=== PATIENT | female | born 1990 | race Caucasian/White ===

== ENCOUNTER 2016-09-22 20:30 | Emergency (ER) | payer OTHER ==
[~2016-09-22] VITALS: Ht 162.6 cm; Wt 44.0 kg
[2016-09-22] MEDS ORDERED: KETOROLAC 30 MG/1 ML ONE (20:50)
[2016-09-22] MEDS ORDERED: FAMOTIDINE 20 MG/2 ML IVP ONE (21:00)
[2016-09-22] MEDS ORDERED: KETOROLAC 30 MG/1 ML IVPush ONE (21:00)
[2016-09-22] MEDS ORDERED: ONDANSETRON 2MG/ML, 2ML IVPush ONE (21:00)
[2016-09-22] MEDS ORDERED: SODIUM CHLORIDE FLUSH 10ML SYR IVF ONE (21:00)
[2016-09-22] MEDS ORDERED: SODIUM CHLORIDE 0.9% 1,000ML IVBOLUS ONE (21:00)
[2016-09-22 21:10] LABS: ASPARTATE AMINO TRANSFERASE 8 U/L (15-37); BLOOD UREA NITROGEN 18 mg/dL (7-18)
[2016-09-22] MEDS ORDERED: HALOPERIDOL 5 MG/ML IV STA (21:18)
[2016-09-22] MEDS ORDERED: LORazepam 2 MG/ML, 1ML ONE (21:25)
[2016-09-22] MEDS ORDERED: HALOPERIDOL 5 MG/ML ONE (21:25)
[2016-09-22] MEDS ORDERED: PLEASE ENTER ALLERGIES MC SCH ×2 (21:30)
[2016-09-22] MEDS ORDERED: LORazepam 2 MG/ML, 1ML IVPush ONE (21:30)
[2016-09-22 22:15] VITALS: BP 123/85
== END 2016-09-22 22:53 | disposition home or self-care (01) ==
LOC: ED 22:47
DX: R11.2 Nausea with vomiting, unspecified (principal); E86.0 Dehydration
CPT/HCPCS: 36415; 80053; 81001; 83690; 84703; 85025; 96361; 96374; 96375; 99284; J1630; J1885; J2060; J2405; J7030; S0028

== ENCOUNTER 2016-11-27 17:24 | Emergency (ER) | payer OTHER ==
[~2016-11-27] VITALS: Ht 160 cm; Wt 44.1 kg
[2016-11-27] MEDS ORDERED: FAMOTIDINE 20 MG/2 ML IVP ONE (18:00)
[2016-11-27] MEDS ORDERED: SODIUM CHLORIDE FLUSH 10ML SYR IVF ONE (18:00)
[2016-11-27] MEDS ORDERED: ONDANSETRON 2MG/ML, 2ML IVPush ONE (18:00)
[2016-11-27] MEDS ORDERED: SODIUM CHLORIDE 0.9% 1,000ML IVBOLUS ONE ×2 (18:00→20:00)
[2016-11-27] MEDS ORDERED: ONDANSETRON 2MG/ML, 2ML ONE (18:16)
[2016-11-27] MEDS ORDERED: ZIPRASIDONE 20 MG INJ IM ONE ×2 (18:17→18:30)
[2016-11-27] MEDS ORDERED: FAMOTIDINE 20 MG/2 ML ONE (18:17)
[2016-11-27 18:22] LABS: HEMATOCRIT 45.3 % (34.6-47.8)
[2016-11-27 18:37] LABS: ASPARTATE AMINO TRANSFERASE 16 U/L (15-37); BLOOD UREA NITROGEN 11 mg/dL (7-18)
[2016-11-27] MEDS ORDERED: MAALOX/HYOSCYAMINE/LIDOCAINE 45 ML BTL PO ONE (20:00)
[2016-11-27 20:29] LABS: PATH.CAST-FLAG NOT PRESENT; SPERM-FLAG NOT PRESENT; SRC-FLAG NOT PRESENT; XTAL-FLAG NOT PRESENT; YLC-FLAG NOT PRESENT
[2016-11-27] MEDS ORDERED: PROMETHAZINE 25 MG/ML, 1ML IM ONE (20:30)
[2016-11-27] MEDS ORDERED: MAALOX/HYOSCYAMINE/LIDOCAINE 45 ML BTL ONE (20:34)
[2016-11-27] MEDS ORDERED: PROMETHAZINE 25 MG/ML, 1ML ONE (20:34)
[2016-11-27] MEDS ORDERED: LORazepam 2 MG/ML, 1ML ONE (21:19)
[2016-11-27] MEDS ORDERED: LORazepam 2 MG/ML, 1ML IVPush ONE (21:30)
[2016-11-27 22:54] VITALS: BP 99/72
== END 2016-11-27 22:56 | disposition home or self-care (01) ==
LOC: ED 20:31
DX: R10.13 Epigastric pain (principal); R11.2 Nausea with vomiting, unspecified; F41.1 Generalized anxiety disorder
CPT/HCPCS: 36415; 80053; 81001; 83690; 84703; 85025; 96361; 96372; 96374; 96375; 99285; J2060; J2405; J2550; J3486; J7030; S0028

== ENCOUNTER 2017-02-20 15:56 | Emergency (ER) | payer OTHER ==
[~2017-02-20] VITALS: Ht 167.6 cm; Wt 43.2 kg
[2017-02-20] MEDS ORDERED: DIPHENHYDRAMINE 50 MG/ML, 1ML ONE (16:45)
[2017-02-20] MEDS ORDERED: METOCLOPRAMIDE 5 MG/ML, 2ML ONE (16:45)
[2017-02-20] MEDS: MORPHINE SULFATE 4 MG/ML, 1ML IVPush PRN ×2 (16:45→17:05)
[2017-02-20] MEDS ORDERED: morphine SULFATE 10 MG/ML, 1ML ONE (16:45)
[2017-02-20] MEDS ORDERED: FAMOTIDINE 20 MG/2 ML ONE (16:45)
[2017-02-20] MEDS ORDERED: SODIUM CHLORIDE 0.9% 1,000ML IVBOLUS ONE ×2 (17:00→19:00)
[2017-02-20] MEDS ORDERED: SODIUM CHLORIDE FLUSH 10ML SYR IVF ONE (17:00)
[2017-02-20] MEDS ORDERED: DIPHENHYDRAMINE 50 MG/ML, 1ML IV ONE (17:00)
[2017-02-20] MEDS ORDERED: METOCLOPRAMIDE 5 MG/ML, 2ML IVPush ONE (17:00)
[2017-02-20] MEDS ORDERED: FAMOTIDINE 20 MG/2 ML IVP ONE (17:00)
[2017-02-20 17:11] LABS: HEMATOCRIT 44.7 % (34.6-47.8); HEMOGLOBIN 14.9 g/dL (11.7-16.4); WHITE BLOOD COUNT 18.9 x10^3/uL (3.4-10)
[2017-02-20 17:16] LABS: ASPARTATE AMINO TRANSFERASE 10 U/L (15-37); BLOOD UREA NITROGEN 12 mg/dL (7-18)
[2017-02-20 19:00] VITALS: BP 116/84
== END 2017-02-20 20:19 | disposition home or self-care (01) ==
LOC: ED 17:46
DX: E86.0 Dehydration (principal); E86.9 Volume depletion, unspecified; G43.A0 Cyclical vomiting, in migraine, not intractable
CPT/HCPCS: 36415; 80053; 81001; 83690; 84703; 85025; 93005; 96361; 96374; 96375; 99285; J1200; J2765; J7030; S0028

== ENCOUNTER 2017-03-08 07:50 | Emergency (ER) | payer OTHER ==
[~2017-03-08] VITALS: Ht 167.6 cm; Wt 41.0 kg
[2017-03-08] MEDS ORDERED: SODIUM CHLORIDE 0.9% 1,000 ML IV ONE (08:18)
[2017-03-08] MEDS ORDERED: SODIUM CHLORIDE FLUSH 10ML SYR IVF ONE (08:30)
[2017-03-08] MEDS ORDERED: SODIUM CHLORIDE 0.9% 1,000ML IVBOLUS ONE (08:30)
[2017-03-08] MEDS ORDERED: ONDANSETRON 2MG/ML, 2ML IVPush ONE (08:30)
[2017-03-08] MEDS ORDERED: ONDANSETRON 2MG/ML, 2ML ONE (08:47)
[2017-03-08] MEDS ORDERED: LORazepam 2 MG/ML, 1ML ONE ×2 (08:53→10:54)
[2017-03-08 08:58] LABS: HEMATOCRIT 43.3 % (34.6-47.8); HEMOGLOBIN 14.7 g/dL (11.7-16.4); WHITE BLOOD COUNT 5.7 x10^3/uL (3.4-10)
[2017-03-08] MEDS ORDERED: LORazepam 2 MG/ML, 1ML IVPush ONE ×2 (09:00→11:00)
[2017-03-08 09:02] LABS: BLOOD UREA NITROGEN 12 mg/dL (7-18)
[2017-03-08 09:08] LABS: ASPARTATE AMINO TRANSFERASE 12 U/L (15-37)
[2017-03-08 09:24] VITALS: BP 130/85
[2017-03-08 09:58] LABS: PATH.CAST-FLAG NOT PRESENT; SPERM-FLAG NOT PRESENT; SRC-FLAG NOT PRESENT; XTAL-FLAG NOT PRESENT; YLC-FLAG NOT PRESENT
[2017-03-08] MEDS ORDERED: PROMETHAZINE 25 MG/ML, 1ML ONE (10:53)
[2017-03-08] MEDS ORDERED: PROMETHAZINE 25 MG/ML, 1ML IM ONE (11:00)
== END 2017-03-08 12:06 | disposition home or self-care (01) ==
LOC: ED 10:44
DX: R11.2 Nausea with vomiting, unspecified (principal)
CPT/HCPCS: 36415; 80053; 81001; 84703; 85025; 96361; 96372; 96374; 96375; 96376; 99285; J2060; J2405; J2550; J7030

== ENCOUNTER 2018-06-18 17:44 | Emergency (ER) | payer OTHER ==
[~2018-06-18] VITALS: Ht 165.1 cm; Wt 56.8 kg
--- NOTE | 2018-06-18 18:33 | NUR ---
Pt to room from lobby via wheelchair.
[2018-06-18] MEDS ORDERED: FLUO20CA19 PO (18:41)
[2018-06-18] MEDS ORDERED: HYDROcodone/APAP 5/325 TABLET ONE (18:57)
[2018-06-18] MEDS ORDERED: ONDANSETRON ODT 4 MG ONE (18:57)
[2018-06-18] MEDS ORDERED: HYDROcodone/APAP 5/325 TABLET PO ONE (19:00)
[2018-06-18] MEDS ORDERED: ONDANSETRON ODT 4 MG PO ONE (19:00)
--- NOTE | 2018-06-18 19:11 | NUR ---
report received from SAM Hernandez. pt medicated per emar by task RN, left foot is elevated at this time. EDMD Biagi at bedside to update pt with results and POC.
[2018-06-18 20:06] VITALS: BP 113/69
--- NOTE | 2018-06-18 20:06 | NUR ---
aliciat in progress by JYOTI
--- NOTE | 2018-06-18 20:27 | NUR ---
splint completed by EDT, cms intact s/p splint. pt reports pain improved s/p norco. pt given dc instructions and script. pt educated regarding crutch use, ortho care, and ortho follow up. pt educated regarding norco and zofran rx. pt amb to dc with crutch gait, accompanied by friend who is to drive pt home. nadn at dc.
== END 2018-06-18 20:28 | disposition home or self-care (01) ==
LOC: ED 20:19
DX: S82.65XA Nondisplaced fracture of lateral malleolus of left fibula, initial encounter for closed fracture (principal); F41.1 Generalized anxiety disorder; W01.0XXA Fall on same level from slipping, tripping and stumbling without subsequent striking against object, initial encounter; Y93.89 Activity, other specified; Y92.410 Unspecified street and highway as the place of occurrence of the external cause; Y99.8 Other external cause status
CPT/HCPCS: 29125; 73590; 73610; 99283; Q0162